=== PATIENT | male | born 1960 ===

== ENCOUNTER 2023-12-11 10:45 | Inpatient (IN) | payer OTHER ==
[2023-12-11] MEDS ORDERED: GLIPIZIDE XL5 MG PO (12:49)
[2023-12-11] MEDS ORDERED: METFORMIN HCL1000 M2 PO (12:49)
[2023-12-11] MEDS ORDERED: FARYDAK10 MG PO (12:50)
[2023-12-11] MEDS ORDERED: LOTREL 10-40 M1 EACH PO (12:50)
[2023-12-11] MEDS ORDERED: HYDRODIURIL12.5 MG PO (12:51)
[2023-12-11] MEDS ORDERED: TAMS0.4C PO (12:51)
[2023-12-11] MEDS ORDERED: ATORVASTATIN CA20 MG PO (12:51)
[2023-12-14] MEDS ORDERED: DEXTROSE 50 % IN WATER 0.5 G/ML DISP.SYRIN IV PRN ×2 (10:15→14:00)
[2023-12-14] MEDS ORDERED: MORPHINE SULFATE 4 MG/ML CARTRIDGE IV PRN (10:15)
[2023-12-14] MEDS ORDERED: OxyCODONE HCL 5 MG TABLET (ROXICODONE) PO PRN (10:15)
[2023-12-14] MEDS ORDERED: 0.9 % SODIUM CHLORIDE 1,000 ML IV SCH (10:15)
[2023-12-14] MEDS ORDERED: ONDANSETRON HCL 2 MG/ML VIAL IV PRN (10:15)
[2023-12-14] MEDS ORDERED: MORPHINE SULFATE 4 MG/ML VIAL IV ONE ×2 (10:50→11:35)
[2023-12-14 12:14] VITALS: BP 126/63
[2023-12-14 12:51] LABS: HEMATOCRIT 40.8 % (39.0-48.0); HEMOGLOBIN 13.4 g/dL (13-16.00); MEAN CELL VOLUME 84.9 fL (80.0-100.00); MEAN CORPUSCULAR HGB CONC 32.9 g/dl (32.0-36.0); PLATELET COUNT 294 K/uL (150-450); RED BLOOD COUNT 4.81 M/uL (4.00-6.00); RED CELL DISTRIBUTION WIDTH 15.3 % (11.5-14.5)
[2023-12-14 12:56] LABS: ALBUMIN 3.7 gm/dL (3.4-5.0); CALCIUM 8.6 mg/dL (8.5-10.1); CREATININE SERUM 0.79 mg/dL (0.70-1.30); GFR 98.74; PHOSPHOROUS 3.2 mg/dL (2.5-4.9); POTASSIUM 4.39 mEq/L (3.5-5.1)
[2023-12-14] MEDS ORDERED: HYOSCYAMINE SULFATE 0.125 MG TAB.SUBL SL SCH (13:00)
[2023-12-14] MEDS ORDERED: ENALAPRILAT DIHYDRATE 1.25 MG/ML VIAL IV PRN (14:00)
[2023-12-14] MEDS ORDERED: INSULIN LISPRO 1,000 UNIT/10 ML UNITS SUBCUTANEO PRN (14:00)
[2023-12-14] MEDS ORDERED: ACETAMINOPHEN 500 MG GEL..CAP PO SCH (14:00)
[2023-12-14 16:04] VITALS: BP 143/74; O2SAT 95
[2023-12-14] MEDS ORDERED: POLYETHYLENE GLYCOL 3350 17 GM BLIST.PACK PO SCH (17:00)
[2023-12-14] MEDS ORDERED: GABAPENTIN 300 MG CAPSULE PO SCH (17:00)
[2023-12-14] MEDS ORDERED: METRONIDAZOLE/SODIUM CHLORIDE 500 MG/100 ML PIGGYBACK IV SCH (17:00)
[2023-12-14] MEDS ORDERED: CELECOXIB 200 MG CAPSULE PO SCH (21:00)
[2023-12-14] MEDS ORDERED: FAMOTIDINE/PF 20 MG/2 ML VIAL IV PUSH SCH (21:00)
[2023-12-14] MEDS ORDERED: TAMSULOSIN HCL 0.4 MG CAP PO SCH (21:00)
[2023-12-15] VITALS: BP 130/67; O2SAT 96
[2023-12-15 07:07] LABS: HEMATOCRIT 39.7 % (39.0-48.0); HEMOGLOBIN 13.3 g/dL (13-16.00); MEAN CELL VOLUME 84.8 fL (80.0-100.00); MEAN CORPUSCULAR HEMOGLOBIN 28.4 pg (27.00-32.0); MEAN CORPUSCULAR HGB CONC 33.5 g/dl (32.0-36.0); PLATELET COUNT 261 K/uL (150-450); RED BLOOD COUNT 4.68 M/uL (4.00-6.00); RED CELL DISTRIBUTION WIDTH 14.9 % (11.5-14.5)
[2023-12-15 07:18] LABS: CALCIUM 8.4 mg/dL (8.5-10.1); CREATININE SERUM 0.73 mg/dL (0.70-1.30); GFR 108.17; MAGNESIUM 2.2 mg/dL (1.8-2.4); PHOSPHOROUS 2.9 mg/dL (2.5-4.9); POTASSIUM 4.63 mEq/L (3.5-5.1)
[2023-12-15 08:45] VITALS: BP 119/61; O2SAT 94
[2023-12-15] MEDS ORDERED: PATIENTS OWN MEDICATION (MEDICAMENTO EN PISO) PO SCH (09:00)
[2023-12-15] MEDS ORDERED: HYDROCHLOROTHIAZIDE 12.5 MG CAPSULE PO SCH (09:00)
[2023-12-15] MEDS ORDERED: ENOXAPARIN SODIUM 40 MG/0.4 ML SYRINGE SUBCUTANEO SCH (17:00)
[2023-12-15] MEDS ORDERED: ATORVASTATIN CALCIUM 20 MG TABLET PO SCH (17:00)
[2023-12-15 17:35] VITALS: BP 99/64; O2SAT 98
[2023-12-16] VITALS: BP 105/56; O2SAT 95
[2023-12-16 08:00] VITALS: BP 138/79; O2SAT 97
[2023-12-16 08:52] LABS: CALCIUM 8.4 mg/dL (8.5-10.1); CREATININE SERUM 0.66 mg/dL (0.70-1.30); GFR 121.51; MAGNESIUM 2.2 mg/dL (1.8-2.4); PHOSPHOROUS 2.2 mg/dL (2.5-4.9); POTASSIUM 4.3 mEq/L (3.5-5.1)
[2023-12-16] MEDS ORDERED: ENOXAPARIN SODIUM 40 MG/0.4 ML SYRINGE SUBCUTANEO SCH (09:00)
[2023-12-16 09:11] LABS: HEMATOCRIT 40.1 % (39.0-48.0); HEMOGLOBIN 13.1 g/dL (13-16.00); MEAN CELL VOLUME 85.5 fL (80.0-100.00); MEAN CORPUSCULAR HEMOGLOBIN 27.8 pg (27.00-32.0); MEAN CORPUSCULAR HGB CONC 32.6 g/dl (32.0-36.0); PLATELET COUNT 231 K/uL (150-450); RED BLOOD COUNT 4.69 M/uL (4.00-6.00); RED CELL DISTRIBUTION WIDTH 15.4 % (11.5-14.5)
[2023-12-16] MEDS ORDERED: ACETAMINOPHEN500 M2 PO (12:51)
[2023-12-16] MEDS ORDERED: NEURONTIN300 MG PO (12:51)
== END 2023-12-16 14:02 | disposition home or self-care (01) | DRG 331 ==
LOC: O/R 12-14 06:00 → SURH 12-14 10:45 → SURG 12-14 12:13 → SURH 12-14 20:45 → SURG 12-16 14:02
PROVIDERS: Internal Medicine Geriatric Medicine; ADMIT Surgery; ATTEND Surgery
PROC: 0DTG4ZZ Resection of Left Large Intestine, Percutaneous Endoscopic Approach (ICD-10-PCS; principal; 2023-12-14 20:45)
DX: C18.5 Malignant neoplasm of splenic flexure (principal); R59.0 Localized enlarged lymph nodes; E11.9 Type 2 diabetes mellitus without complications